=== PATIENT | male | born 1990 | race Caucasian/White ===

== ENCOUNTER 2017-08-14 06:39 | Emergency (ER) | payer BC ==
[~2017-08-14] VITALS: Ht 167.6 cm; Wt 77.0 kg
[~2017-08-14 06:39] MED LIST: MOTRIN; NAPROXEN
[2017-08-14 10:07] VITALS: BP 124/80
== END 2017-08-14 10:56 | disposition home or self-care (01) ==
LOC: ER 06:39
DX: H10.023 Other mucopurulent conjunctivitis, bilateral (principal); Z98.890 Other specified postprocedural states
CPT/HCPCS: 99283